=== PATIENT | male | born 1995 | race Caucasian/White ===

== ENCOUNTER 2018-07-12 11:48 | Emergency (ER) | payer SELFPAY ==
[~2018-07-12] VITALS: Ht 167.6 cm; Wt 63.5 kg
[2018-07-12] MEDS ORDERED: LORAZEPAM 1 MG TABLET ONE (12:00)
[2018-07-12] MEDS ORDERED: LORAZEPAM 0.5 MG TABLET PO ONE (12:00)
--- NOTE | 2018-07-12 12:09 | NUR ---
Patient is seen pacing briskly around ER hallway despite frequent reminders to stay inside room 3. Patient is also seen using his cellphone & talking loudly, sometimes crying & tearful while on his cellphone. Patient also called 911 while inside our ER department.
--- NOTE | 2018-07-12 12:17 | NUR ---
Patient is Ax4, refuses blood draw, MD notified.
--- NOTE | 2018-07-12 12:26 | NUR ---
Patient is AOx4, wants leave, notified.
--- NOTE | 2018-07-12 12:27 | NUR ---
Patient eloped from facility. ER physician notified.
== END 2018-07-12 12:30 | disposition left against medical advice (07) ==
LOC: ER 11:48
DX: F19.90 Other psychoactive substance use, unspecified, uncomplicated (principal); M79.671 Pain in right foot; M79.672 Pain in left foot
CPT/HCPCS: A4663

== ENCOUNTER 2018-07-12 13:24 | Emergency (ER) | payer SELFPAY ==
[~2018-07-12] VITALS: Ht 167.6 cm; Wt 63.5 kg
--- NOTE | 2018-07-12 13:31 | NUR ---
Patient walked in to ER c/o anxiety. Patient previously seen in this ER and eloped approximately 40 minutes prior to arriving for this visit. Patient was previously noted to be A/O X4, paranoid, uncooperative, pacing, and refusing care. Patient received medication during his first visit. Patient arrives less agitated than previously but remains uncooperative and paranoid stating "they are poisoning my water" and accusing staff of injecting him with "lithium" and unknown substances. To room 5A, XAVIER performed MSE.
--- NOTE | 2018-07-12 14:00 | NUR ---
Patient continuing to refuse blood draw, education performed, patient allowed staff to perform blood draw if performed specifically within his parameters. Urine and blood specimens to LABORATORY.
[2018-07-12 14:04] LABS: BASOPHILS # (AUTO) 0.2 K/uL (0.0-8.0); BASOPHILS % (AUTO) 1.2 % (0.0-2.0); EOSINOPHILS % (AUTO) 0.1 % (0.0-7.0); HEMATOCRIT 44.1 % (36.7-47.1); HEMOGLOBIN 15.2 g/dL (12.5-16.3); LYMPHOCYTES # (AUTO) 2.3 K/uL (20.0-40.0); LYMPHOCYTES % (AUTO) 18.5 % (20.5-51.5); MEAN CORPUSCULAR HGB CONC 35 g/dL (32.5-36.3); MEAN CORPUSCULAR VOLUME 89.8 fL (73.0-96.2); MONOCYTES # (AUTO) 0.8 K/uL (2.0-10.0); MONOCYTES % (AUTO) 6.9 % (0.0-11.0); NEUTROPHILS # (AUTO) 8.9 K/uL (1.8-8.9); NEUTROPHILS % (AUTO) 73.3 % (38.5-71.5); PLATELET COUNT (AUTO) 353 K/uL (152-348); RED BLOOD CELL COUNT(AUTO) 4.91 MIL/uL (4.06-5.63); WHITE BLOOD COUNT (AUTO) 12.2 K/uL (3.6-10.2)
[2018-07-12 14:12] LABS: CARBON DIOXIDE 29 mmol/L (21-32); CHLORIDE 100 mmol/L (98-107); GLUCOSE 78 mg/dL (74-106); POTASSIUM 3.7 mmol/L (3.5-5.1); UREA NITROGEN, BLOOD 28 mg/dL (7-18)
--- NOTE | 2018-07-12 14:16 | NUR ---
break out worker Jennifer notified re: consultation for this patient.
[2018-07-12 14:18] LABS: ALANINE AMINOTRANSFERASE 98 U/L (16-63); ALKALINE PHOSPHATASE 94 U/L (50-136); ASPARTATE AMINOTRANSFERASE 71 U/L (15-37); BILIRUBIN,DIRECT 0.6 mg/dL (0.0-0.2); BILIRUBIN,TOTAL 2.8 mg/dL (0.2-1.0); TOTAL PROTEIN, SERUM 9.2 g/dL (6.4-8.2)
[2018-07-12 14:19] LABS: ACETAMINOPHEN < 2.0 ug/mL (10-30)
[2018-07-12 14:20] LABS: ETHANOL < 3 MG/DL (0-0)
--- NOTE | 2018-07-12 14:21 | NUR ---
Lunch tray was offered. Patient refused at this time.
[2018-07-12 14:23] LABS: *AMPHETAMINE, URINE POSITIVE (NEGATIVE); *BARBITURATE, URINE NEGATIVE (NEGATIVE); *CANNABINOID, URINE POSITIVE (NEGATIVE); *COCCAINE, URINE NEGATIVE (NEGATIVE); *OPIATE, URINE NEGATIVE (NEGATIVE); *PHENCYCLIDINE SCREEN,URINE NEGATIVE (NEGATIVE)
--- NOTE | 2018-07-12 14:30 | NUR ---
Patient drank 200ml iced juice. No coughing or drooling noted, MD notified.
--- NOTE | 2018-07-12 14:46 | NUR ---
bridge worker Jennifer is at bedside evaluating the patient.
[2018-07-12 14:47] LABS: *CLARITY,URINE CLEAR (CLEAR); *COLOR,URINE LIGHT YELLOW (YELLOW); PH,URINE 6.5 (5.0-8.0)
[2018-07-12 14:48] LABS: *BILIRUBIN,URIN NEGATIVE (NEGATIVE); *BLOOD, URINE 1+ (NEGATIVE); *KETONES,URINE NEGATIVE (NEGATIVE); *UROBILINOGEN,URINE 0.2 E.U./dl (NORMAL); LEUKOCYTE ESTERASE ,URINE NEGATIVE (NEGATIVE); NITRITE, URINE NEGATIVE (NEGATIVE); UGLUCOSE NEGATIVE (NEGATIVE); WBC,URINE 0-3 /HPF (0-3)
--- NOTE | 2018-07-12 15:04 | NUR ---
Patient ate 75% of the lunch tray, NAD.
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
[2018-07-12] MEDS ORDERED: OLANZAPINE 10 MG VIAL IM ONE ×2 (15:24→15:30)
--- NOTE | 2018-07-12 15:47 | NUR ---
[employer] officers are bedside.
--- NOTE | 2018-07-12 15:59 | NUR ---
"He is not talking." per [employer] officers. Per [employer], this person can go to any nearest police station if he wants to report an incident. Our hospital staff can also call 911 again per [employer] officers if this patient refused to leave the hospital premises after the medical clearance by our ER doctor.
--- NOTE | 2018-07-12 16:05 | NUR ---
3:49: [employer] officers from [facility] (Officer Jania # [id number] and Officer Brian #[id number]) arrived to the ED, met with patient. [employer] officers then met with this SW and Dr. Gonsalez. Officers stated that patient was not being cooperative or willing to talk to them or provide any information. Officers also stated that this was the 3rd time they were called today for this individual (first 2 times were in [facility], before he came to the ED). Officers stated that no report could be taken at this time and no other interventions could be done by them at this time since patient was not providing them with any information; officers stated to call them back if patient decides to talk to them. SW and ED staff agreed.
--- NOTE | 2018-07-12 16:49 | NUR ---
After about an hour of sleeping, patient is now awake, AOx4, walking around ER hallway, pending disposition. Hospital security field supervisor Wero is at bedside.
--- NOTE | 2018-07-12 17:03 | NUR ---
Patient was given written and verbal discharge instructions. Patient verbalizes understanding of instructions. Patient is ambulatory with steady gait. Patient was given list of available shelters in surrounding area. Per patient, he will arrange his own transport & living arrangement. "I will go back to back to my cousin." per patient's verbalization.
== END 2018-07-12 17:08 | disposition home or self-care (01) ==
LOC: ER 13:24
DX: F19.90 Other psychoactive substance use, unspecified, uncomplicated (principal)
CPT/HCPCS: 36415; 80048; 80076; 80307; 81001; 85025; 96372; 99283; G0480 ×2; G0481; A4663; J2358